=== PATIENT | male | born 1980 | race Asian ===

== ENCOUNTER 2021-08-04 11:38 | Emergency (ER) | payer OTHER ==
[~2021-08-04] VITALS: Ht 160 cm; Wt 68.2 kg
[2021-08-04 12:27] LABS: BASO % 0.5 % (0.0-2.0); EOS # 0.1 K/mm3 (0.0-0.7); EOS % 2.4 % (0.0-4.0); GRAN # 3.3 K/mm3 (1.4-6.5); GRAN % 56.5 % (42.2-75.2); HEMATOCRIT 44.4 % (42.0-52.0); HEMOGLOBIN 14.2 g/dl (13.5-18.0); LYMPH # 1.5 K/mm3 (1.2-3.4); MEAN CELL VOLUME 72 fl (80.0-100.0); MEAN CORPUSCULAR HEMOGLOBIN 23 pg (27-31); MEAN CORPUSCULAR HGB CONC 32 g/dl (33.0-37.0); MEAN PLATELET VOLUME 10.8 fl (7.4-10.4); MONO # 0.9 K/mm3 (0.1-0.6); MONO % 15.3 % (1.7-9.3); PLATELET COUNT 260 K/mm3 (130-400); RED BLOOD COUNT 6.14 M/mm3 (4.20-5.60); REDCELL DISTRIBUTION WIDTH-CV 13.2 % (11.5-14.5)
[2021-08-04 12:42] LABS: ALANINE AMINOTRANSFERASE 15 U/L (0-55); ALBUMIN 4.5 gm/dL (3.5-5.0); ALKALINE PHOSPHATASE 70 U/L (40-150); ANION GAP 11 mmol/L (7-16); AST,SGOT 23 U/L (5-34); BILIRUBIN,TOTAL 0.6 mg/dL (0.2-1.2); BLOOD UREA NITROGEN 19 mg/dL (9-21); C-REACTIVE PROTEIN 2.28 mg/dL (0.00-0.50); CALCIUM 9.8 mg/dL (8.4-10.2); CARBON DIOXIDE 25 mmol/L (22-29); CHLORIDE 105 mmol/L (98-107); CREATININE, serum 1.39 mg/dL (0.72-1.25); GLUCOSE 107 mg/dL (70-99); POTASSIUM 3.9 mmol/L (3.5-4.5); SODIUM 141 mmol/L (136-145); TOTAL PROTEIN 8.6 gm/dL (6.2-8.1)
[2021-08-04 12:48] LABS: TROPONIN-I < 0.010 ng/mL (0.00-0.033)
[2021-08-04 13:42] VITALS: BP 132/88; PULSE 91; TEMP 98.7
== END 2021-08-04 13:42 | disposition home or self-care (01) ==
LOC: COL.ER 11:38
PROVIDERS: Nurse Practitioner
DX: R07.9 Chest pain, unspecified (principal); R59.0 Localized enlarged lymph nodes; T50.B95A Adverse effect of other viral vaccines, initial encounter
CPT/HCPCS: J1885; J7030

== ENCOUNTER 2021-09-02 15:58 | Emergency (ER) | payer OTHER ==
[~2021-09-02] VITALS: Ht 160 cm; Wt 81.8 kg
[2021-09-02 16:33] VITALS: TEMP 98.1
[2021-09-02 17:26] LABS: BASO % 0.8 % (0.0-2.0); EOS # 0.1 K/mm3 (0.0-0.7); EOS % 2.7 % (0.0-4.0); GRAN # 1.7 K/mm3 (1.4-6.5); GRAN % 46.2 % (42.2-75.2); HEMOGLOBIN 13.7 g/dl (13.5-18.0); LYMPH # 1.5 K/mm3 (1.2-3.4); LYMPH % 41.2 % (20.0-51.0); MEAN CELL VOLUME 73 fl (80.0-100.0); MEAN CORPUSCULAR HEMOGLOBIN 23 pg (27-31); MEAN CORPUSCULAR HGB CONC 31 g/dl (33.0-37.0); MEAN PLATELET VOLUME 10.6 fl (7.4-10.4); MONO # 0.3 K/mm3 (0.1-0.6); MONO % 9.1 % (1.7-9.3); PLATELET COUNT 240 K/mm3 (130-400); REDCELL DISTRIBUTION WIDTH-CV 13.2 % (11.5-14.5)
[2021-09-02 17:46] LABS: ALANINE AMINOTRANSFERASE 19 U/L (0-55); ALBUMIN 4.7 gm/dL (3.5-5.0); ALKALINE PHOSPHATASE 71 U/L (40-150); ANION GAP 14 mmol/L (7-16); AST,SGOT 21 U/L (5-34); BLOOD UREA NITROGEN 15 mg/dL (9-21); CALCIUM 9.7 mg/dL (8.4-10.2); CARBON DIOXIDE 22 mmol/L (22-29); CHLORIDE 104 mmol/L (98-107); CREATININE, serum 1.13 mg/dL (0.72-1.25); GLUCOSE 96 mg/dL (70-99); POTASSIUM 4.1 mmol/L (3.5-4.5); SODIUM 140 mmol/L (136-145); TOTAL PROTEIN 8.7 gm/dL (6.2-8.1)
[2021-09-02 17:53] LABS: TROPONIN-I < 0.010 ng/mL (0.00-0.033)
[2021-09-02] MEDS ORDERED: PRILOTC PO (17:56)
[2021-09-02 18:12] VITALS: BP 129/94; PULSE 81
== END 2021-09-02 18:12 | disposition home or self-care (01) ==
LOC: COL.ER 15:58
PROVIDERS: Emergency Medicine
DX: R07.89 Other chest pain (principal); R10.13 Epigastric pain; D72.819 Decreased white blood cell count, unspecified

== ENCOUNTER 2022-04-03 20:34 | Emergency (ER) | payer SELFPAY ==
[~2022-04-03] VITALS: Ht 160 cm; Wt 55.0 kg
[~2022-04-03 20:34] MED LIST: PRILOTC PO
[2022-04-03 20:55] VITALS: TEMP 98
[2022-04-03 22:40] VITALS: BP 128/92; PULSE 80
== END 2022-04-03 22:45 | disposition home or self-care (01) ==
LOC: COL.ER 20:34
DX: I10 Essential (primary) hypertension (principal); H04.123 Dry eye syndrome of bilateral lacrimal glands